=== PATIENT | female | born 1985 | race African-American/Black ===

== ENCOUNTER 2023-10-27 10:12 | Outpatient (CLI) | payer OTHER | END 2023-10-27 10:13 | disposition home or self-care (01) | LOC: PRENATAL 10:12 | PROVIDERS: ATTEND Obstetrics & Gynecology Maternal & Fetal Medicine | DX: O36.80X0 Pregnancy with inconclusive fetal viability, not applicable or unspecified (principal); Z36.82 Encounter for antenatal screening for nuchal translucency; O09.529 Supervision of elderly multigravida, unspecified trimester; O34.10 Maternal care for benign tumor of corpus uteri, unspecified trimester; Z3A.12 12 weeks gestation of pregnancy ==

== ENCOUNTER 2023-11-18 09:17 | Day surgery (SDC) | payer OTHER ==
[2023-11-16 12:49] LABS: HEMATOCRIT 34.5 % (36.0-45.00); HEMOGLOBIN 11.8 g/dL (12.0-15.00); MEAN CELL VOLUME 87.9 fL (80.00-100.00); MEAN CORPUSCULAR HGB CONC 34.1 g/dl (32.0-36.0); PLATELET COUNT 234 K/uL (150-450); RED BLOOD COUNT 3.93 M/uL (4.00-6.00); RED CELL DISTRIBUTION WIDTH 14.7 % (11.5-14.5)
[2023-11-16 13:27] LABS: INR 0.97; PARTIAL THROMBOPLASTIN TIME 31.8 SECONDS (22.0-34.0)
[2023-11-16 13:34] LABS: PROTHROMBIN TIME 10.2 SECONDS (9.0-11.5)
[~2023-11-18 09:17] MED LIST: IRON236 MG PO; PRENATAL 19 CH1 EAC1 PO; ZOFRAN8 MG PO
[2023-11-18] MEDS ORDERED: METRONIDAZOLE/SODIUM CHLORIDE 500 MG/100 ML PIGGYBACK IV ONE ×4 (12:42→16:45)
[2023-11-18] MEDS ORDERED: POVIDONE-IODINE 118 ML BOTT TOP ONE (16:45)
== END 2023-11-18 20:20 | disposition home or self-care (01) ==
LOC: CIR.AMB 09:17
PROVIDERS: Obstetrics & Gynecology; ATTEND Obstetrics & Gynecology Maternal & Fetal Medicine
DX: O34.32 Maternal care for cervical incompetence, second trimester (principal)

== ENCOUNTER 2024-02-12 09:01 | Outpatient (CLI) | payer OTHER | END 2024-02-12 09:02 | disposition home or self-care (01) | LOC: PRENATAL 09:01 | PROVIDERS: ATTEND Obstetrics & Gynecology Maternal & Fetal Medicine | DX: O09.529 Supervision of elderly multigravida, unspecified trimester (principal); O36.1999 Maternal care for other isoimmunization, unspecified trimester, other fetus; O34.10 Maternal care for benign tumor of corpus uteri, unspecified trimester; Z3A.28 28 weeks gestation of pregnancy ==

== ENCOUNTER 2024-03-05 22:37 | Inpatient (IN) | payer OTHER ==
[~2024-03-05] VITALS: Ht 167.6 cm; Wt 131.5 kg
[2024-03-05] MEDS ORDERED: CHILDREN'S ASPI81 MG PO (22:44)
[2024-03-05] MEDS ORDERED: FOLIC ACID20 MG PO (22:44)
[2024-03-05] MEDS ORDERED: LABETALOL HCL100 MG PO (22:45)
[2024-03-05] MEDS ORDERED: RINGERS SOLUTION,LACTATED 1,000 ML IV SCH (22:45)
[2024-03-05] MEDS ORDERED: LABETALOL HCL 100 MG TABLET PO SCH (23:15)
[2024-03-05 23:18] LABS: PH,URINE 5.5 (5.0-8.0); URINE APPEARANCE Cloudy; URINE BILIRRUBIN Small (NEGATIVE); URINE BLOOD Negative; URINE COLOR Dark Yellow; URINE GLUCOSE Negative (NEGATIVE); URINE LEUKOCYTE Moderate; URINE NITRATE Negative; URINE PROTEIN 30 (NEGATIVE)
[2024-03-05 23:19] LABS: HEMATOCRIT 30.6 % (36.0-45.00); HEMOGLOBIN 10.3 g/dL (12.0-15.00); MEAN CELL VOLUME 88.1 fL (80.00-100.00); MEAN CORPUSCULAR HEMOGLOBIN 29.7 pg (27.00-32.0); MEAN CORPUSCULAR HGB CONC 33.7 g/dl (32.0-36.0); PLATELET COUNT 137 K/uL (150-450); RED BLOOD COUNT 3.48 M/uL (4.00-6.00); RED CELL DISTRIBUTION WIDTH 14.4 % (11.5-14.5)
[2024-03-05 23:22] LABS: URINE BACTERIA 6612.3 uL (0.0-1933); URINE EPITHELIAL CELLS 73.4 uL (0.0-38.8); URINE RBC 9.7 uL (0.0-20.8); URINE WBC 305.6 uL (0.0-23.2)
[2024-03-05 23:38] LABS: URINE CRYSTALS FEW /HPF; URINE MUCUS MODERATE
[2024-03-05 23:43] LABS: ALBUMIN 2.6 gm/dL (3.4-5.0); BILIRUBIN TOTAL 0.41 mg/dL (0.3-1.2); CALCIUM 9.3 mg/dL (8.5-10.1); CREATININE SERUM 0.86 mg/dL (0.55-1.02); GFR 74.66; GLOBULINA 4.6 G/DL (2.4-3.5); POTASSIUM 4.01 mEq/L (3.5-5.1); TOTAL PROTEIN 7.2 gm/dL (6.4-8.2)
[2024-03-05 23:57] LABS: PARTIAL THROMBOPLASTIN TIME 33.3 SECONDS (22.0-34.0); PROTHROMBIN TIME 10.5 SECONDS (9.0-11.5)
[2024-03-06] MEDS ORDERED: BETAMETHASONE ACETATE,SOD PHOS 30 MG/5 ML ML IM STA (08:58)
[2024-03-06] MEDS ORDERED: CEFAZOLIN SODIUM 1,000 MG VIAL IV NR (09:00)
[2024-03-06] MEDS ORDERED: RINGERS SOLUTION,LACTATED 1,000 ML IV SCH (09:00)
[2024-03-06] MEDS ORDERED: PNV,CALCIUM 72/IRON/FOLIC ACID 1 TAB TABLET PO SCH (09:00)
[2024-03-06] MEDS ORDERED: BETAMETHASONE ACETATE,SOD PHOS 30 MG/5 ML ML ONE (09:28)
[2024-03-06 09:29] LABS: HEMATOCRIT 31.6 % (36.0-45.00); HEMOGLOBIN 10.8 g/dL (12.0-15.00); MEAN CORPUSCULAR HEMOGLOBIN 30.1 pg (27.00-32.0); MEAN CORPUSCULAR HGB CONC 34.2 g/dl (32.0-36.0); PLATELET COUNT 261 K/uL (150-450); RED BLOOD COUNT 3.59 M/uL (4.00-6.00); RED CELL DISTRIBUTION WIDTH 14.6 % (11.5-14.5)
[2024-03-06] MEDS ORDERED: CEFAZOLIN SODIUM 1,000 MG VIAL ONE (09:29)
[2024-03-06 09:55] LABS: ALBUMIN 2.5 gm/dL (3.4-5.0); BILIRUBIN TOTAL 0.35 mg/dL (0.3-1.2); CALCIUM 9.3 mg/dL (8.5-10.1); CREATININE SERUM 0.63 mg/dL (0.55-1.02); GFR 106.92; GLOBULINA 4.5 G/DL (2.4-3.5); POTASSIUM 4.13 mEq/L (3.5-5.1)
[2024-03-06] MEDS ORDERED: CEFAZOLIN SODIUM 1,000 MG VIAL IV SCH (14:00)
[2024-03-07] MEDS ORDERED: CEFAZOLIN SODIUM 1,000 MG VIAL ONE ×2 (01:30→08:16)
[2024-03-07] MEDS ORDERED: BETAMETHASONE ACETATE,SOD PHOS 30 MG/5 ML ML IM SCH (09:00)
== END 2024-03-08 10:59 | disposition home or self-care (01) | DRG 831 ==
LOC: OBS/DEL → LDR 03-06 08:57
PROVIDERS: Specialist; ADMIT Obstetrics & Gynecology; ATTEND Obstetrics & Gynecology
PROC: 4A1HXCZ Monitoring of Products of Conception, Cardiac Rate, External Approach (ICD-10-PCS; principal; 2024-03-06)
PROC: BY4FZZZ Ultrasonography of Third Trimester, Single Fetus (ICD-10-PCS; 2024-03-07)
PROC: BU4CZZZ Ultrasonography of Uterus and Ovaries (ICD-10-PCS; 2024-03-07)
DX: O23.43 Unspecified infection of urinary tract in pregnancy, third trimester (principal); O60.03 Preterm labor without delivery, third trimester; O14.93 Unspecified pre-eclampsia, third trimester; O13.3 Gestational [pregnancy-induced] hypertension without significant proteinuria, third trimester; Z3A.31 31 weeks gestation of pregnancy; Z20.822 Contact with and (suspected) exposure to COVID-19; O36.8130 Decreased fetal movements, third trimester, not applicable or unspecified; O26.843 Uterine size-date discrepancy, third trimester

== ENCOUNTER 2024-04-04 09:27 | Outpatient (CLI) | payer OTHER ==
[~2024-04-04 09:27] MED LIST changes: +CHILDREN'S ASPI81 MG PO; +FOLIC ACID20 MG PO; +LABETALOL HCL100 MG PO
== END 2024-04-04 09:28 | disposition home or self-care (01) ==
LOC: PRENATAL 09:27
PROVIDERS: ATTEND Obstetrics & Gynecology Maternal & Fetal Medicine
DX: O26.843 Uterine size-date discrepancy, third trimester (principal); O36.8199 Decreased fetal movements, unspecified trimester, other fetus; O09.523 Supervision of elderly multigravida, third trimester; O34.33 Maternal care for cervical incompetence, third trimester; O34.13 Maternal care for benign tumor of corpus uteri, third trimester; O36.0930 Maternal care for other rhesus isoimmunization, third trimester, not applicable or unspecified; Z3A.35 35 weeks gestation of pregnancy

== ENCOUNTER 2024-04-12 05:36 | Inpatient (IN) | payer OTHER ==
[~2024-04-12] VITALS: Ht 167.6 cm; Wt 133.8 kg
[2024-04-12] MEDS ORDERED: RINGERS SOLUTION,LACTATED 1,000 ML IV SCH (06:00)
[2024-04-12 06:41] LABS: HEMATOCRIT 31.6 % (36.0-45.00); HEMOGLOBIN 10.8 g/dL (12.0-15.00); MEAN CELL VOLUME 86.9 fL (80.00-100.00); MEAN CORPUSCULAR HEMOGLOBIN 29.8 pg (27.00-32.0); MEAN CORPUSCULAR HGB CONC 34.2 g/dl (32.0-36.0); PLATELET COUNT 247 K/uL (150-450); RED BLOOD COUNT 3.64 M/uL (4.00-6.00); RED CELL DISTRIBUTION WIDTH 15.3 % (11.5-14.5)
[2024-04-12 07:28] LABS: INR 0.98; PARTIAL THROMBOPLASTIN TIME 30.8 SECONDS (22.0-34.0); PROTHROMBIN TIME 10.7 SECONDS (9.0-11.5)
[2024-04-12 07:35] LABS: PH,URINE 5.5 (5.0-8.0); URINE APPEARANCE Clear; URINE BILIRRUBIN Negative (NEGATIVE); URINE BLOOD Negative; URINE COLOR Yellow; URINE GLUCOSE Negative (NEGATIVE); URINE KETONE Negative (NEGATIVE); URINE LEUKOCYTE Small; URINE NITRATE Negative; URINE PROTEIN Negative (NEGATIVE)
[2024-04-12 07:38] LABS: URINE BACTERIA 908.3 uL (0.0-1933); URINE WBC 29.2 uL (0.0-23.2)
[2024-04-12 07:39] LABS: URINE CAST 0.15 uL (0.0-1.40)
[2024-04-12] MEDS ORDERED: MORPHINE SULFATE 4 MG/ML CARTRIDGE IV ONE (08:45)
[2024-04-12] MEDS ORDERED: OXYTOCIN 500 ML IV SCH (08:45)
[2024-04-12] MEDS ORDERED: OXYTOCIN 20 UNITS/1000ML RL PIGGYBAG IV ONE (13:51)
[2024-04-12] MEDS ORDERED: ERYTHROMYCIN BASE 1 GM TUBE OP ONE ×2 (13:51→17:30)
[2024-04-12] MEDS ORDERED: LIDOCAINE HCL 1% 10ML VIAL ONE (13:52)
[2024-04-12] MEDS ORDERED: CHLORHEXIDINE GLUCONATE 120 ML BOTTLE TOP ONE ×2 (13:52→14:37)
[2024-04-12] MEDS ORDERED: OXYTOCIN 1,000 ML IV ONE (14:37)
[2024-04-12] MEDS ORDERED: LIDOCAINE HCL 1% 10ML VIAL IJ ONE (14:37)
[2024-04-12] MEDS ORDERED: IBUprofen 400 MG TABLET PO PRN (17:30)
[2024-04-12 18:19] LABS: HEMATOCRIT 32.5 % (36.0-45.00); MEAN CELL VOLUME 87.4 fL (80.00-100.00); MEAN CORPUSCULAR HEMOGLOBIN 29.6 pg (27.00-32.0); MEAN CORPUSCULAR HGB CONC 33.9 g/dl (32.0-36.0); PLATELET COUNT 254 K/uL (150-450); RED BLOOD COUNT 3.71 M/uL (4.00-6.00); RED CELL DISTRIBUTION WIDTH 15.3 % (11.5-14.5)
[2024-04-13] MEDS ORDERED: PNV,CALCIUM 72/IRON/FOLIC ACID 1 TAB TABLET PO SCH (09:00)
== END 2024-04-14 12:39 | disposition home or self-care (01) | DRG 768 ==
LOC: LDR 05:36 → OB/GYN 15:05
PROVIDERS: ADMIT Obstetrics & Gynecology; ATTEND Obstetrics & Gynecology
PROC: 10E0XZZ Delivery of Products of Conception, External Approach (ICD-10-PCS; principal; 2024-04-12)
PROC: 0UCC7ZZ Extirpation of Matter from Cervix, Via Natural or Artificial Opening (ICD-10-PCS; 2024-04-12)
PROC: 0KQM0ZZ Repair Perineum Muscle, Open Approach (ICD-10-PCS; 2024-04-12)
PROC: 4A1HXCZ Monitoring of Products of Conception, Cardiac Rate, External Approach (ICD-10-PCS; 2024-04-12)
DX: O70.1 Second degree perineal laceration during delivery (principal); Z37.0 Single live birth; O34.33 Maternal care for cervical incompetence, third trimester; O99.214 Obesity complicating childbirth; E66.9 Obesity, unspecified; O13.4 Gestational [pregnancy-induced] hypertension without significant proteinuria, complicating childbirth; Z3A.36 36 weeks gestation of pregnancy; Z20.822 Contact with and (suspected) exposure to COVID-19